=== PATIENT | female | born 1965 | race Caucasian/White ===

== ENCOUNTER 2020-08-24 09:41 | Inpatient (IN) | payer OTHER ==
[2020-08-24 15:06] VITALS: BMI 28.3
[2020-08-24] MEDS ORDERED: MAG HYDROX/AL HYDROX/SIMETH 30 ML UNIT-DOSE CUP PO PRN (15:50)
[2020-08-24] MEDS ORDERED: ACETAMINOPHEN 325 MG TABLET (FP) PO PRN (15:50)
[2020-08-24] MEDS ORDERED: MAGNESIUM HYDROX 2400MG/30ML ORAL SUSPENSION 30 ML CUP PO PRN (15:50)
[2020-08-24] MEDS ORDERED: LOPERAMIDE HCL 2 MG CAPSULE PO PRN (15:50)
[2020-08-24] MEDS ORDERED: guaiFENesin 200 MG/10 ML 10 ML UNIT-DOSE CUPS PO PRN (15:50)
[2020-08-24] MEDS ORDERED: MAGNESIUM CITRATE 300 ML BOTTLE PO PRN (15:50)
[2020-08-24] MEDS ORDERED: P-EPHED 60MG/TRIPROLIDI 2.5MG TABLET PO PRN (15:50)
[2020-08-24] MEDS ORDERED: NICOTINE POLACRILEX 2 MG GUM BC PRN (15:50)
[2020-08-24] MEDS ORDERED: ALBUTEROL SO4 HFA INHALER IH PRN (15:56)
[2020-08-24] MEDS ORDERED: TUBERCULIN PPD 5 TU/0.1ML VIAL ID ONE (17:21)
[2020-08-24] MEDS: hydrOXYzine PAMOATE 25 MG CAPSULE (FP) PO SCH ×2 (17:21→21:23)
[2020-08-24] MEDS: NICOTINE 14 MG/24 HOURS TOPICAL PATCH TD SCH (17:21)
[2020-08-24 17:44] LABS: HEMATOCRIT 42.7 % (32.4-45.2); HEMOGLOBIN 14.3 GM/dL (10.7-15.3); MCH 31.4 pg (25.7-33.7); MCHC 33.4 g/dl (32.0-36.0); MEAN CELL VOLUME 93.9 fl (80-96); MEAN PLT VOLUME 8.9 fl (7.5-11.1); PLATELET COUNT 224 K/MM3 (134-434); RBC 4.54 M/mm3 (3.60-5.2); RDW 13.5 % (11.6-15.6); WHITE BLOOD COUNT 6.8 K/mm3 (4.0-10.0)
[2020-08-24 17:46] LABS: CALCIUM 8.6 mg/dL (8.5-10.1)
[2020-08-24 17:47] LABS: ALBUMIN 3.6 g/dl (3.4-5.0); BLOOD UREA NITROGEN 18.6 mg/dL (7-18)
[2020-08-24 17:50] LABS: CREATININE 0.8 mg/dL (0.55-1.3)
[2020-08-24 17:51] LABS: BILIRUBIN,TOTAL 0.4 mg/dL (0.2-1)
[2020-08-24 17:52] LABS: TOT PROT 6.5 g/dl (6.4-8.2)
[2020-08-24 17:55] LABS: POTASSIUM 3.9 mmol/L (3.5-5.1)
[2020-08-24] MEDS: THIAMINE HCL 100 MG TABLET (FP) PO SCH (21:22)
[2020-08-24] MEDS: MELATONIN 5 MG TABLETS PO SCH (21:22)
[2020-08-24] MEDS: KETOCONAZOLE 2% TOPICAL CREAM 15 GM TUBE TP SCH (22:10)
[2020-08-24 23:35] LABS: PH,URINE 5.5 (5.0-8.0); URINE APPEARANCE CLEAR; URINE BILIRUBIN NEGATIVE (NEGATIVE); URINE COLOR YELLOW; URINE GLUCOSE (UA) NEGATIVE (NEGATIVE); URINE KETONE NEGATIVE (NEGATIVE); URINE LEUK ESTERASE NEGATIVE (NEGATIVE); URINE NITRITE NEGATIVE (NEGATIVE); URINE PROTEIN NEGATIVE (NEGATIVE)
[2020-08-25] MEDS: hydrOXYzine PAMOATE 25 MG CAPSULE (FP) PO SCH ×2 (06:45→09:57)
[2020-08-25] MEDS: NICOTINE 14 MG/24 HOURS TOPICAL PATCH TD SCH (09:56)
[2020-08-25] MEDS: KETOCONAZOLE 2% TOPICAL CREAM 15 GM TUBE TP SCH ×2 (09:57→21:32)
[2020-08-25] MEDS: PRENATAL VITAMINS W/ FOLIC ACID TABLET (FP) PO SCH (09:57)
[2020-08-25] MEDS ORDERED: traZODone HCL 50 MG TABLET (FP) PO PRN (13:56)
[2020-08-25] MEDS: THIAMINE HCL 100 MG TABLET (FP) PO SCH (21:30)
[2020-08-25] MEDS: MELATONIN 5 MG TABLETS PO SCH (21:30)
[2020-08-25] MEDS: traZODone HCL 100 MG TABLET (FP) PO PRN (21:31)
[2020-08-26] MEDS: PRENATAL VITAMINS W/ FOLIC ACID TABLET (FP) PO SCH (09:58)
[2020-08-26] MEDS: KETOCONAZOLE 2% TOPICAL CREAM 15 GM TUBE TP SCH ×2 (09:59→21:22)
[2020-08-26] MEDS: NICOTINE 14 MG/24 HOURS TOPICAL PATCH TD SCH (09:59)
[2020-08-26] MEDS: IBUPROFEN 400 MG TABLET (FP) PO PRN ×2 (11:01→22:10)
[2020-08-26] MEDS: traZODone HCL 100 MG TABLET (FP) PO PRN (21:22)
[2020-08-26] MEDS: MELATONIN 5 MG TABLETS PO SCH (21:22)
[2020-08-26] MEDS: THIAMINE HCL 100 MG TABLET (FP) PO SCH (21:22)
[2020-08-27] MEDS: NICOTINE 14 MG/24 HOURS TOPICAL PATCH TD SCH (09:54)
[2020-08-27] MEDS: PRENATAL VITAMINS W/ FOLIC ACID TABLET (FP) PO SCH (09:54)
[2020-08-27] MEDS: KETOCONAZOLE 2% TOPICAL CREAM 15 GM TUBE TP SCH ×2 (11:00→21:39)
[2020-08-27] MEDS: IBUPROFEN 400 MG TABLET (FP) PO PRN ×2 (15:05→21:38)
[2020-08-27] MEDS: THIAMINE HCL 100 MG TABLET (FP) PO SCH (21:37)
[2020-08-27] MEDS: traZODone HCL 100 MG TABLET (FP) PO PRN (21:37)
[2020-08-27] MEDS: MELATONIN 5 MG TABLETS PO SCH (21:37)
[2020-08-28] MEDS: PRENATAL VITAMINS W/ FOLIC ACID TABLET (FP) PO SCH (10:21)
[2020-08-28] MEDS: NICOTINE 14 MG/24 HOURS TOPICAL PATCH TD SCH (10:21)
[2020-08-28] MEDS: KETOCONAZOLE 2% TOPICAL CREAM 15 GM TUBE TP SCH ×2 (10:22→21:17)
[2020-08-28] MEDS: MELATONIN 5 MG TABLETS PO SCH (21:16)
[2020-08-28] MEDS: traZODone HCL 100 MG TABLET (FP) PO PRN (21:16)
[2020-08-28] MEDS: THIAMINE HCL 100 MG TABLET (FP) PO SCH (21:16)
[2020-08-28] MEDS: IBUPROFEN 400 MG TABLET (FP) PO PRN (21:17)
[2020-08-29] MEDS: KETOCONAZOLE 2% TOPICAL CREAM 15 GM TUBE TP SCH ×2 (10:18→21:24)
[2020-08-29] MEDS: PRENATAL VITAMINS W/ FOLIC ACID TABLET (FP) PO SCH (10:18)
[2020-08-29] MEDS: NICOTINE 14 MG/24 HOURS TOPICAL PATCH TD SCH (10:18)
[2020-08-29] MEDS: IBUPROFEN 400 MG TABLET (FP) PO PRN ×2 (10:19→21:24)
[2020-08-29] MEDS ORDERED: MASKS NR ONE (18:03)
[2020-08-29] MEDS: THIAMINE HCL 100 MG TABLET (FP) PO SCH (21:23)
[2020-08-29] MEDS: MELATONIN 5 MG TABLETS PO SCH (21:23)
[2020-08-29] MEDS: traZODone HCL 100 MG TABLET (FP) PO PRN (21:23)
[2020-08-30] MEDS: NICOTINE 14 MG/24 HOURS TOPICAL PATCH TD SCH (10:52)
[2020-08-30] MEDS: PRENATAL VITAMINS W/ FOLIC ACID TABLET (FP) PO SCH (10:52)
[2020-08-30] MEDS: KETOCONAZOLE 2% TOPICAL CREAM 15 GM TUBE TP SCH ×2 (10:53→21:09)
[2020-08-30] MEDS: THIAMINE HCL 100 MG TABLET (FP) PO SCH (21:08)
[2020-08-30] MEDS: traZODone HCL 100 MG TABLET (FP) PO PRN (21:08)
[2020-08-30] MEDS: MELATONIN 5 MG TABLETS PO SCH (21:08)
[2020-08-30] MEDS: IBUPROFEN 400 MG TABLET (FP) PO PRN (21:09)
[2020-08-31] MEDS: PRENATAL VITAMINS W/ FOLIC ACID TABLET (FP) PO SCH (10:22)
[2020-08-31] MEDS: NICOTINE 14 MG/24 HOURS TOPICAL PATCH TD SCH (10:22)
[2020-08-31] MEDS: KETOCONAZOLE 2% TOPICAL CREAM 15 GM TUBE TP SCH ×2 (10:24→21:37)
[2020-08-31] MEDS: IBUPROFEN 400 MG TABLET (FP) PO PRN (15:19)
[2020-08-31] MEDS: traZODone HCL 100 MG TABLET (FP) PO PRN (21:36)
[2020-08-31] MEDS: MELATONIN 5 MG TABLETS PO SCH (21:36)
[2020-08-31] MEDS: THIAMINE HCL 100 MG TABLET (FP) PO SCH (21:36)
[2020-09-01] MEDS: PRENATAL VITAMINS W/ FOLIC ACID TABLET (FP) PO SCH (10:12)
[2020-09-01] MEDS: NICOTINE 14 MG/24 HOURS TOPICAL PATCH TD SCH (10:14)
[2020-09-01] MEDS: KETOCONAZOLE 2% TOPICAL CREAM 15 GM TUBE TP SCH ×2 (10:15→21:24)
[2020-09-01] MEDS: THIAMINE HCL 100 MG TABLET (FP) PO SCH (21:23)
[2020-09-01] MEDS: traZODone HCL 100 MG TABLET (FP) PO PRN (21:23)
[2020-09-01] MEDS: MELATONIN 5 MG TABLETS PO SCH (21:23)
[2020-09-01] MEDS: IBUPROFEN 400 MG TABLET (FP) PO PRN (21:24)
[2020-09-01] MEDS: METHYL SALICYLATE/MENTHOL OINT 30 GM TUBE TP SCH (21:24)
[2020-09-02] MEDS: METHYL SALICYLATE/MENTHOL OINT 30 GM TUBE TP SCH ×2 (10:26→21:22)
[2020-09-02] MEDS: PRENATAL VITAMINS W/ FOLIC ACID TABLET (FP) PO SCH (10:26)
[2020-09-02] MEDS: KETOCONAZOLE 2% TOPICAL CREAM 15 GM TUBE TP SCH ×2 (10:27→21:22)
[2020-09-02] MEDS: NICOTINE 14 MG/24 HOURS TOPICAL PATCH TD SCH (10:27)
[2020-09-02] MEDS: THIAMINE HCL 100 MG TABLET (FP) PO SCH (21:21)
[2020-09-02] MEDS: MELATONIN 5 MG TABLETS PO SCH (21:21)
[2020-09-02] MEDS: traZODone HCL 100 MG TABLET (FP) PO PRN (21:21)
[2020-09-03] MEDS: METHYL SALICYLATE/MENTHOL OINT 30 GM TUBE TP SCH ×2 (10:18→21:15)
[2020-09-03] MEDS: NICOTINE 14 MG/24 HOURS TOPICAL PATCH TD SCH (10:19)
[2020-09-03] MEDS: PRENATAL VITAMINS W/ FOLIC ACID TABLET (FP) PO SCH (10:20)
[2020-09-03] MEDS: KETOCONAZOLE 2% TOPICAL CREAM 15 GM TUBE TP SCH ×2 (10:20→21:15)
[2020-09-03] MEDS: MELATONIN 5 MG TABLETS PO SCH (21:14)
[2020-09-03] MEDS: traZODone HCL 100 MG TABLET (FP) PO PRN (21:14)
[2020-09-03] MEDS: THIAMINE HCL 100 MG TABLET (FP) PO SCH (21:14)
[2020-09-04] MEDS ORDERED: COLLOIDAL OATMEAL 1 BAR EACH TP PRN (09:59)
[2020-09-04] MEDS: METHYL SALICYLATE/MENTHOL OINT 30 GM TUBE TP SCH ×2 (10:28→21:38)
[2020-09-04] MEDS: PRENATAL VITAMINS W/ FOLIC ACID TABLET (FP) PO SCH (10:28)
[2020-09-04] MEDS: NICOTINE 14 MG/24 HOURS TOPICAL PATCH TD SCH (10:28)
[2020-09-04] MEDS: KETOCONAZOLE 2% TOPICAL CREAM 15 GM TUBE TP SCH ×2 (10:29→21:38)
[2020-09-04] MEDS: MINERAL OIL/PETROLAT/WATER TOPICAL CREAM 113 GM JAR TP SCH (10:30)
[2020-09-04] MEDS: HYDROCORTISONE 1% TOPICAL CREAM 30 GM TUBE TP SCH ×2 (10:55→21:38)
[2020-09-04] MEDS: THIAMINE HCL 100 MG TABLET (FP) PO SCH (21:37)
[2020-09-04] MEDS: traZODone HCL 100 MG TABLET (FP) PO PRN (21:37)
[2020-09-04] MEDS: MELATONIN 5 MG TABLETS PO SCH (21:38)
[2020-09-05] MEDS: PRENATAL VITAMINS W/ FOLIC ACID TABLET (FP) PO SCH (10:01)
[2020-09-05] MEDS: KETOCONAZOLE 2% TOPICAL CREAM 15 GM TUBE TP SCH ×2 (10:03→21:18)
[2020-09-05] MEDS: HYDROCORTISONE 1% TOPICAL CREAM 30 GM TUBE TP SCH ×2 (10:03→21:19)
[2020-09-05] MEDS: NICOTINE 14 MG/24 HOURS TOPICAL PATCH TD SCH (10:03)
[2020-09-05] MEDS: MINERAL OIL/PETROLAT/WATER TOPICAL CREAM 113 GM JAR TP SCH (10:03)
[2020-09-05] MEDS: METHYL SALICYLATE/MENTHOL OINT 30 GM TUBE TP SCH ×2 (10:04→21:19)
[2020-09-05] MEDS: traZODone HCL 100 MG TABLET (FP) PO PRN (21:17)
[2020-09-05] MEDS: THIAMINE HCL 100 MG TABLET (FP) PO SCH (21:17)
[2020-09-05] MEDS: MELATONIN 5 MG TABLETS PO SCH (21:19)
[2020-09-06] MEDS: PRENATAL VITAMINS W/ FOLIC ACID TABLET (FP) PO SCH (10:06)
[2020-09-06] MEDS: KETOCONAZOLE 2% TOPICAL CREAM 15 GM TUBE TP SCH ×2 (10:07→21:23)
[2020-09-06] MEDS: NICOTINE 14 MG/24 HOURS TOPICAL PATCH TD SCH (10:07)
[2020-09-06] MEDS: MINERAL OIL/PETROLAT/WATER TOPICAL CREAM 113 GM JAR TP SCH (10:07)
[2020-09-06] MEDS: HYDROCORTISONE 1% TOPICAL CREAM 30 GM TUBE TP SCH ×2 (10:07→21:23)
[2020-09-06] MEDS: METHYL SALICYLATE/MENTHOL OINT 30 GM TUBE TP SCH ×2 (10:27→21:23)
[2020-09-06] MEDS: traZODone HCL 100 MG TABLET (FP) PO PRN (21:22)
[2020-09-06] MEDS: MELATONIN 5 MG TABLETS PO SCH (21:22)
[2020-09-06] MEDS: THIAMINE HCL 100 MG TABLET (FP) PO SCH (21:22)
[2020-09-07 07:13] VITALS: BP 113/75; PULSE 69; TEMP 97.9
[2020-09-07] MEDS: MINERAL OIL/PETROLAT/WATER TOPICAL CREAM 113 GM JAR TP SCH (09:20)
[2020-09-07] MEDS: HYDROCORTISONE 1% TOPICAL CREAM 30 GM TUBE TP SCH (09:20)
[2020-09-07] MEDS: METHYL SALICYLATE/MENTHOL OINT 30 GM TUBE TP SCH (09:20)
[2020-09-07] MEDS: PRENATAL VITAMINS W/ FOLIC ACID TABLET (FP) PO SCH (09:20)
[2020-09-07] MEDS: KETOCONAZOLE 2% TOPICAL CREAM 15 GM TUBE TP SCH (09:21)
[2020-09-07] MEDS: NICOTINE 14 MG/24 HOURS TOPICAL PATCH TD SCH (09:21)
== END 2020-09-07 10:25 | disposition home or self-care (01) | DRG 772 ==
LOC: YASAS 09:41 → Y3W 15:42
PROVIDERS: ADMIT Allergy & Immunology; ATTEND Allergy & Immunology
PROC: HZ42ZZZ Group Counseling for Substance Abuse Treatment, Cognitive-Behavioral (ICD-10-PCS; principal; 2020-08-24)
DX: F10.20 Alcohol dependence, uncomplicated (principal); F11.10 Opioid abuse, uncomplicated; F14.20 Cocaine dependence, uncomplicated; F17.210 Nicotine dependence, cigarettes, uncomplicated; F19.280 Other psychoactive substance dependence with psychoactive substance-induced anxiety disorder; F19.282 Other psychoactive substance dependence with psychoactive substance-induced sleep disorder; F19.24 Other psychoactive substance dependence with psychoactive substance-induced mood disorder; F31.9 Bipolar disorder, unspecified; G62.9 Polyneuropathy, unspecified; J45.909 Unspecified asthma, uncomplicated; B18.2 Chronic viral hepatitis C; Z62.810 Personal history of physical and sexual abuse in childhood; Z91.410 Personal history of adult physical and sexual abuse; Z86.19 Personal history of other infectious and parasitic diseases
CPT/HCPCS: 36415; 80053; 81003; 85027; 86593; 86780; 87389; 93005; 93010; C9803; U0003